=== PATIENT | female | born 1935 | race Caucasian/White ===

== ENCOUNTER 2018-04-25 12:17 | Emergency (ER) | payer OTHER ==
[~2018-04-25] VITALS: Ht 165.1 cm; Wt 56.7 kg
[~2018-04-25 12:17] MED LIST: ANTI-DIARRHEA2 MG PO; FLAGYL500 MG PO
[2018-04-25 13:04] LABS: URINE BILIRUBIN NEGATIVE (Negative); URINE BLOOD NEGATIVE (Negative); URINE CLARITY CLEAR; URINE COLOR YELLOW; URINE GLUCOSE-RANDOM* NEGATIVE (Negative); URINE KETONES NEGATIVE (Negative); URINE LEUKOCYTES-REFLEX NEGATIVE (Negative); URINE NITRITE-REFLEX NEGATIVE (Negative); URINE PROTEIN (DIPSTICK) NEGATIVE (Negative); URINE SPECIFIC GRAVITY 1.025 (1.005-1.035); URINE UROBILINOGEN 0.2 E.U./dl (0.2-1.0)
[2018-04-25 14:19] LABS: ABSOLUTE NEUTROPHILS 8.5 thou/uL (1.4-8.2); BASOPHILS 0.4 % (0.0-2.0); EOSINOPHILS 0.8 % (0.0-3.0); HEMATOCRIT 40.7 % (37.0-47.0); HEMOGLOBIN 13.9 gm/dL (12.0-15.0); LYMPHOCYTES 5.1 % (24.0-44.0); MCH 31.5 pg (26.0-34.0); MCV 92.7 fL (80.0-100.0); MONOCYTES 4.4 % (1.0-8.0); PLATELET COUNT 237 thou/uL (150-400); POLYS 89.3 % (36.0-66.0); RBC 4.39 mil/uL (4.20-5.00); RDW 14.4 % (10.5-14.5); WBC 9.5 thou/uL (4.0-11.0)
[2018-04-25 14:24] LABS: ANION GAP 10 mmol/L (7-16); BUN 23 mg/dL (7-18); CALCIUM 9.2 mg/dL (8.5-10.1); CHLORIDE 105 mmol/L (98-107); CO2 24 mmol/L (21-32); CREATININE 0.8 mg/dL (0.6-1.0); GLUCOSE 105 mg/dL (74-106); SODIUM 139 mmol/L (136-145)
[2018-04-25 14:26] LABS: POTASSIUM 4.5 mmol/L (3.5-5.1)
[2018-04-25 14:33] LABS: ALBUMIN 3.8 g/dL (3.4-5.0); LIPASE 225 U/L (73-393); SGOT 35 U/L (15-37); SGPT 29 U/L (30-65); TOTAL BILIRUBIN 0.5 mg/dL (<0.1-1.0); TOTAL PROTEIN 7.3 g/dL (6.4-8.2); TROPONIN-I <0.06 ng/mL (<0.06)
[2018-04-25] MEDS ORDERED: LOPERAMIDE 2 MG2 M1 PO (14:57)
[2018-04-25 15:22] VITALS: BP 128/71
--- NOTE | 2018-04-26 10:56 | EKG ---
[address] [address] ELECTROCARDIOGRAM REPORT Name: BABAR SHEN Room #: [facility]#: [id number] Admission: 04/25/18 Attend Phys: Discharge: 04/25/18 Date of : 31 Report #: [id number] THIS REPORT FOR: //name// [facility] ED Test Date: 2018-04-25 Test Time: 13:29:47 Pat Name: BABAR SHEN Department: Room: Gender: F Corn Cutter: NELSON : 1935 Requested By: Abbey Browne Order Number: [id number] MD: Aleksandr Hernandez Measurements Intervals [place] Rate: 75 P: 49 MI: 155 QRS: 8 QRSD: 89 T: 28 QT: 426 QTc: 476 Interpretive Statements Sinus rhythm Probable left atrial enlargement Compared to ECG 02/29/2012 08:05:26 T-wave abnormality no longer present Electronically Signed On 04-26-2018 10:56:38 SPINNER CONTINUOUS by Aleksandr Hernandez [email or web address] <ELECTRONICALLY SIGNED> By: Aleksandr Hernandez MD 04/26/18 1056 1329 [id number] MD RICH Gold
== END 2018-04-25 15:22 | disposition home or self-care (01) ==
LOC: ER 12:17
PROVIDERS: Physician Assistant
DX: R19.7 Diarrhea, unspecified (principal); R11.2 Nausea with vomiting, unspecified; R10.12 Left upper quadrant pain

== ENCOUNTER 2018-05-02 08:07 | Emergency (ER) | payer OTHER ==
[~2018-05-02] VITALS: Ht 165.1 cm; Wt 56.7 kg
[~2018-05-02 08:07] MED LIST changes: +LOPERAMIDE 2 MG2 M1 PO
[2018-05-02 08:11] VITALS: BP 150/79
[2018-05-02 08:28] LABS: URINE BILIRUBIN NEGATIVE (Negative); URINE BLOOD NEGATIVE (Negative); URINE CLARITY CLEAR; URINE COLOR YELLOW; URINE GLUCOSE-RANDOM* NEGATIVE (Negative); URINE KETONES NEGATIVE (Negative); URINE LEUKOCYTES-REFLEX NEGATIVE (Negative); URINE NITRITE-REFLEX NEGATIVE (Negative); URINE PROTEIN (DIPSTICK) NEGATIVE (Negative); URINE SPECIFIC GRAVITY <= 1.005 (1.005-1.035); URINE UROBILINOGEN 0.2 E.U./dl (0.2-1.0)
[2018-05-02 09:08] LABS: ABSOLUTE NEUTROPHILS 5.2 thou/uL (1.4-8.2); BASOPHILS 0.9 % (0.0-2.0); EOSINOPHILS 1.5 % (0.0-3.0); HEMATOCRIT 40.5 % (37.0-47.0); HEMOGLOBIN 13.7 gm/dL (12.0-15.0); LYMPHOCYTES 20.2 % (24.0-44.0); MCH 31.2 pg (26.0-34.0); MCHC 33.9 g/dL (28.0-37.0); MCV 92.2 fL (80.0-100.0); MONOCYTES 9.7 % (1.0-8.0); PLATELET COUNT 266 thou/uL (150-400); POLYS 67.7 % (36.0-66.0); RBC 4.39 mil/uL (4.20-5.00); RDW 13.8 % (10.5-14.5); WBC 7.6 thou/uL (4.0-11.0)
[2018-05-02 09:16] LABS: ANION GAP 6 mmol/L (7-16); BUN 21 mg/dL (7-18); CALCIUM 9.8 mg/dL (8.5-10.1); CHLORIDE 105 mmol/L (98-107); CO2 29 mmol/L (21-32); GLUCOSE 100 mg/dL (74-106); POTASSIUM 4.1 mmol/L (3.5-5.1); SODIUM 140 mmol/L (136-145)
[2018-05-02 09:25] LABS: ALBUMIN 3.9 g/dL (3.4-5.0); LIPASE 353 U/L (73-393); SGOT 33 U/L (15-37); SGPT 31 U/L (30-65); TOTAL BILIRUBIN 0.3 mg/dL (<0.1-1.0); TOTAL PROTEIN 7.3 g/dL (6.4-8.2); TROPONIN-I <0.06 ng/mL (<0.06)
[2018-05-02 10:39] VITALS: BP 162/81
[2018-05-02 11:36] VITALS: BP 140/59
--- NOTE | 2018-05-03 21:58 | EKG ---
[address] [address] ELECTROCARDIOGRAM REPORT Name: BABAR SHEN Room #: [facility]#: [id number] Admission: 05/02/18 Attend Phys: Discharge: 05/02/18 Date of : 31 Report #: [id number] THIS REPORT FOR: //name// [facility] ED Test Date: 2018-05-02 Test Time: 08:45:51 Pat Name: BABAR SHEN Department: Room: 170 Gender: F Fiscal Assistant: cecily : 1935 Requested By: Frankie Richardson Order Number: [id number] MD: Hawk Sanchez Measurements Intervals [place] Rate: 68 P: 54 IN: 156 QRS: 14 QRSD: 92 T: 36 QT: 401 QTc: 427 Interpretive Statements Sinus rhythm Abnormal R-wave progression, early transition Compared to ECG 04/25/2018 13:29:47 No significant changes Electronically Signed On 05-03-2018 21:58:31 FLEXOGRAPHIC PRESS OPERATOR by Hawk Sanchez [email or web address] <ELECTRONICALLY SIGNED> By: Hawk Sanchez MD 05/03/18 2158 4 4 Hawk Sanchez MD /SANDRA
== END 2018-05-02 11:37 | disposition home or self-care (01) ==
LOC: ER 08:07 → EROBS 10:59 → ER 11:37
PROVIDERS: Emergency Medicine
DX: K80.21 Calculus of gallbladder without cholecystitis with obstruction (principal); R42 Dizziness and giddiness

== ENCOUNTER 2018-05-04 06:41 | Inpatient (IN) | payer OTHER ==
[~2018-05-04] VITALS: Ht 165.1 cm; Wt 54.4 kg
[2018-05-04 06:41] VITALS: BP 155/80
[2018-05-04 08:09] LABS: BASOPHILS 0.8 % (0.0-2.0); EOSINOPHILS 1.6 % (0.0-3.0); HEMATOCRIT 42.4 % (37.0-47.0); HEMOGLOBIN 14.1 gm/dL (12.0-15.0); LYMPHOCYTES 22.1 % (24.0-44.0); MCH 30.8 pg (26.0-34.0); MCHC 33.2 g/dL (28.0-37.0); MCV 92.7 fL (80.0-100.0); MONOCYTES 11.2 % (1.0-8.0); PLATELET COUNT 313 thou/uL (150-400); POLYS 64.3 % (36.0-66.0); RBC 4.58 mil/uL (4.20-5.00); RDW 14.4 % (10.5-14.5); WBC 7.7 thou/uL (4.0-11.0)
[2018-05-04 08:21] LABS: CALCIUM 10.4 mg/dL (8.5-10.1); CREATININE 0.9 mg/dL (0.6-1.0); POTASSIUM 4.2 mmol/L (3.5-5.1)
[2018-05-04 08:36] VITALS: BP 154/86
[2018-05-04 09:19] VITALS: BP 152/80
[2018-05-04 14:46] VITALS: BP 155/78
[2018-05-04 17:20] VITALS: BP 155/86
[2018-05-04 19:33] VITALS: BP 149/91
--- NOTE | 2018-05-04 19:34 | NUR ---
ASSUMED CARE OF PT AT 09:16. ARRIVED FROM ED IN STABLE CONDITION. ADMISSION ASSESSMENT COMPLETED. A&O,X4. UP AD SRINATH. C/O ABD PAIN, PAIN MEDS GIVEN ORDERED. PT HAD BEEN EXPERIENCING DIARRHEA, NO LOOSE STOOLS NOTED SINCE AM TODAY. SKIN INTACT. ROOM AIR, CLEAR LUNGS. REGULAR HEART SOUNDS, NO EDEMA. ONE EPISODE OF NAUSEA NOTED, MEDS GIVEN, NAUSEA RESOLVED. MAINTAINING C.DIFF PRECAUTIONS. PT UP IN HALLWAYS WALKING AROUND THIS EVENING. WILL CONTINUE TO MONITOR.
--- NOTE | 2018-05-04 19:37 | NUR ---
DR. GIMENEZ CALLED AND REPORTED NEGATIVE C.DIFF RESULTS. ORDERS TO D/C FLAGYL AND VANCOMYOCIN. PRECAUTIONS REMOVED. POSSIBLE DISCHARGE TOMORROW. PT IN STABLE CONDITION.
--- NOTE | 2018-05-05 01:09 | NUR ---
PT IS UP AD SRINATH. WALKED ROUND THE HALLWAYS X 1. PT DENIES NAUSEA. DRINKING WATER. PT HAS AN IV TO RAC. IVF INFUSING. PT INSISTING ON IVF TO BE DISCONTINUED PLUS THE IV. AFTER MUCH CONVINCING, PT AGREED TO REMAIN WITH IV BUT FLUIDS HAD TO BE STOPPED. PT GIVEN A FULL PITCHER OF WATER.PT WAS C/O INABILITY TO SLEEP. PT ALSO REFUSED FOR IV SITE TO BE MOVED TO A DIFFERENT SITE.WILL CONTINUE WITH POC TILL EOS.
[2018-05-05 04:41] VITALS: BP 155/87
[2018-05-05] MEDS ORDERED: REMERON15 MG PO (07:43)
[2018-05-05 08:00] VITALS: BP 155/80
[2018-05-05 08:08] VITALS: BP 155/87
--- NOTE | 2018-05-05 09:07 | NUR ---
ASSUMED CARE OF PT AT 0700. ASSESSMENT COMPLETED. A&O,X4. DENIES CONCERNS, STATES NO ABD PAIN AND NO LOOSE STOOLS. PT ATE BREAKFAST, NO NAUSEA. NEW DISCHARGE ORDERS. IV REMOVED, NO BLEEDING. DISCHARGE INFORMATION DISCUSSED WITH PT AT BEDSIDE, NO QUESTIONS. SCRIPTS AND CARENOTES GIVEN. PT LEFT IN STABLE CONDITION VIA WHEELCHAIR AT 09:10.
== END 2018-05-05 09:12 | disposition home or self-care (01) | DRG 392 ==
LOC: ER 06:41 → EROBS 07:28 → 4E 07:28 → ENTRNSPT 05-05 09:02 → EDTRNSPTSTS 05-05 09:06 → 4E 05-05 09:12
PROVIDERS: Emergency Medicine; ADMIT Family Medicine
DX: A08.4 Viral intestinal infection, unspecified (principal); N17.9 Acute kidney failure, unspecified; R19.7 Diarrhea, unspecified; K80.20 Calculus of gallbladder without cholecystitis without obstruction; E86.0 Dehydration; G47.00 Insomnia, unspecified; F41.9 Anxiety disorder, unspecified
CPT/HCPCS: 10084

== ENCOUNTER 2018-06-06 13:38 | Emergency (ER) | payer OTHER ==
[~2018-06-06] VITALS: Ht 162.6 cm; Wt 54.4 kg
[~2018-06-06 13:38] MED LIST changes: +REMERON15 MG PO
[2018-06-06 14:20] LABS: ABSOLUTE NEUTROPHILS 9.5 thou/uL (1.4-8.2); BASOPHILS 0.2 % (0.0-2.0); EOSINOPHILS 0.8 % (0.0-3.0); HEMATOCRIT 39.1 % (37.0-47.0); HEMOGLOBIN 13.2 gm/dL (12.0-15.0); LYMPHOCYTES 5.5 % (24.0-44.0); MCH 30.7 pg (26.0-34.0); MCHC 33.7 g/dL (28.0-37.0); MONOCYTES 5.5 % (1.0-8.0); PLATELET COUNT 365 thou/uL (150-400); RDW 13.8 % (10.5-14.5); WBC 10.8 thou/uL (4.0-11.0)
[2018-06-06 14:33] LABS: ALBUMIN 3.6 g/dL (3.4-5.0); TOTAL BILIRUBIN 0.3 mg/dL (<0.1-1.0)
[2018-06-06 15:51] VITALS: BP 127/74
== END 2018-06-06 15:51 | disposition home or self-care (01) ==
LOC: ER 13:38
PROVIDERS: Physician Assistant
DX: J40 Bronchitis, not specified as acute or chronic (principal); Z88.1 Allergy status to other antibiotic agents

== ENCOUNTER 2018-09-22 07:37 | Emergency (ER) | payer OTHER ==
[~2018-09-22] VITALS: Ht 162.6 cm; Wt 54.4 kg
[2018-09-22] MEDS ORDERED: ZOLOFT50 MG PO (07:47)
[2018-09-22] MEDS ORDERED: ESZOPICLONE3 MG PO (07:47)
[2018-09-22] MEDS ORDERED: NORCO 5-325 TA1 EAC1 PO (09:06)
[2018-09-22 09:25] VITALS: BP 138/54
== END 2018-09-22 09:26 | disposition home or self-care (01) ==
LOC: ER 07:37
DX: S52.571A Other intraarticular fracture of lower end of right radius, initial encounter for closed fracture (principal); S00.83XA Contusion of other part of head, initial encounter; S80.212A Abrasion, left knee, initial encounter; S80.211A Abrasion, right knee, initial encounter; S00.31XA Abrasion of nose, initial encounter; M19.90 Unspecified osteoarthritis, unspecified site; Z88.1 Allergy status to other antibiotic agents; W01.0XXA Fall on same level from slipping, tripping and stumbling without subsequent striking against object, initial encounter; Y92.89 Other specified places as the place of occurrence of the external cause; Y93.89 Activity, other specified; Y99.8 Other external cause status

== ENCOUNTER → 2019-04-21 | Outpatient (CLI) | payer OTHER, MEDICARE ==
[~2019-04-21] MED LIST changes: +ESZOPICLONE3 MG PO; +NORCO 5-325 TA1 EAC1 PO; +ZOLOFT50 MG PO
== END ==
LOC: RAD 08:48
DX: R05 Cough (principal); R09.89 Other specified symptoms and signs involving the circulatory and respiratory systems

== ENCOUNTER → 2020-03-28 | Outpatient (CLI) | payer OTHER, MEDICARE | LOC: CAT 15:35 | PROVIDERS: ATTEND Family Medicine | DX: K80.80 Other cholelithiasis without obstruction (principal); R91.1 Solitary pulmonary nodule; D72.829 Elevated white blood cell count, unspecified; G89.29 Other chronic pain ==

== ENCOUNTER → 2020-04-13 | Outpatient (CLI) | payer OTHER, MEDICARE | LOC: CAT 10:08 | PROVIDERS: ATTEND Surgery | DX: K80.20 Calculus of gallbladder without cholecystitis without obstruction (principal); D72.829 Elevated white blood cell count, unspecified; G89.29 Other chronic pain; R91.1 Solitary pulmonary nodule ==

== ENCOUNTER → 2020-04-17 | Outpatient (CLI) | payer OTHER, MEDICARE | LOC: NUC 07:59 | PROVIDERS: ATTEND Surgery | DX: K80.20 Calculus of gallbladder without cholecystitis without obstruction (principal) ==

== ENCOUNTER → 2020-04-20 | Outpatient (CLI) | payer OTHER, MEDICARE ==
[~2020-04-20] MED LIST changes: +B COMPLEX1 EACH PO; +DIAZEPAM 10 MG10 M2 PO; +EYE HEALTH ADU1 EACH PO; +FISH OIL 1,0001 EAC9 PO; +LUTEIN6 MG PO; +ZOLOFT25 MG PO; -ZOLOFT50 MG PO
== END ==
LOC: LAB 07:36
PROVIDERS: ATTEND Radiology Diagnostic Radiology
DX: Z01.812 Encounter for preprocedural laboratory examination (principal); Z20.822 Contact with and (suspected) exposure to COVID-19

== ENCOUNTER → 2020-04-21 | Outpatient (CLI) | payer OTHER, MEDICARE ==
[~2020-04-21] VITALS: Ht 162.6 cm; Wt 53.5 kg
[2020-04-21 10:49] VITALS: BP 146/74
[2020-04-21 11:52] LABS: INR 1.1; PROTIME 11.1 Seconds (9.3-11.4)
== END ==
LOC: SPEC 10:09
PROVIDERS: Internal Medicine Hematology; ATTEND Radiology Diagnostic Radiology
DX: K80.10 Calculus of gallbladder with chronic cholecystitis without obstruction (principal); Z98.890 Other specified postprocedural states; Z82.49 Family history of ischemic heart disease and other diseases of the circulatory system

== ENCOUNTER 2020-04-23 08:44 | Emergency (ER) | payer OTHER, MEDICARE ==
[~2020-04-23] VITALS: Ht 157.5 cm; Wt 46.7 kg
[2020-04-23 10:03] VITALS: BP 141/85
== END 2020-04-23 10:30 | disposition home or self-care (01) ==
LOC: ER 08:44
DX: Z48.89 Encounter for other specified surgical aftercare (principal); Z79.899 Other long term (current) drug therapy; Z88.1 Allergy status to other antibiotic agents

== ENCOUNTER → 2020-05-11 | Outpatient (CLI) | payer OTHER, MEDICARE | LOC: LAB 13:58 | PROVIDERS: ATTEND Radiology Diagnostic Radiology | DX: Z01.812 Encounter for preprocedural laboratory examination (principal); Z20.822 Contact with and (suspected) exposure to COVID-19 ==

== ENCOUNTER → 2020-05-12 | Outpatient (CLI) | payer OTHER, MEDICARE | END | disposition home or self-care (01) | LOC: SPEC 12:59 | PROVIDERS: ATTEND Surgery | DX: Z48.03 Encounter for change or removal of drains (principal); K80.00 Calculus of gallbladder with acute cholecystitis without obstruction; Z98.890 Other specified postprocedural states; Z79.899 Other long term (current) drug therapy ==

== ENCOUNTER 2020-10-19 10:40 | Emergency (ER) | payer OTHER, MEDICARE ==
[~2020-10-19] VITALS: Ht 162.6 cm; Wt 54.4 kg
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
[2020-10-19 11:27] LABS: ABSOLUTE NEUTROPHILS 5.7 thou/uL (1.4-8.2); BASOPHILS 0.8 % (0.0-2.0); EOSINOPHILS 0.9 % (0.0-3.0); HEMATOCRIT 39.6 % (37.0-47.0); LYMPHOCYTES 23.7 % (24.0-44.0); MCH 30.5 pg (26.0-34.0); MCHC 32.9 g/dL (28.0-37.0); MCV 92.8 fL (80.0-100.0); MONOCYTES 10.5 % (1.0-8.0); PLATELET COUNT 268 thou/uL (150-400); POLYS 64.1 % (36.0-66.0); RBC 4.27 mil/uL (4.20-5.00); RDW 14.9 % (10.5-14.5); WBC 8.8 thou/uL (4.0-11.0)
[2020-10-19 11:37] LABS: CALCIUM 8.7 mg/dL (8.5-10.1); CREATININE 1.1 mg/dL (0.6-1.0); POTASSIUM 4.1 mmol/L (3.5-5.1)
[2020-10-19] MEDS ORDERED: APAP W/CODEINE1 TA2 PO (13:04)
[2020-10-19 13:11] VITALS: BP 172/79
--- NOTE | 2020-10-19 14:14 | EKG ---
[address] [address] ELECTROCARDIOGRAM REPORT Name: BABAR SHEN Room #: [facility]#: [id number] Admission: 10/19/20 Attend Phys: Discharge: 10/19/20 Date of : 31 Report #: [id number] [facility] ED Test Date: 2020-10-19 Test Time: 10:42:37 Pat Name: BABAR SHEN Department: Room: Gender: Radioisotope Technologist: CAITIE : 1935 Requested By: Thanh Hays Order Number: [id number] MD: Chin Villasenor Measurements Intervals [place] Rate: 71 P: 39 AL: 158 QRS: 7 QRSD: 92 T: 30 QT: 404 QTc: 439 Interpretive Statements Sinus arrhythmia Probable left atrial enlargement Compared to ECG 05/02/2018 08:45:51 Sinus rhythm no longer present Electronically Signed On 10-19-2020 14:14:37 CDT by Chin Villasenor [email or web address] <ELECTRONICALLY SIGNED> By: Chin Villasenor MD, [facility] 10/19/20 1414 1042 1042 Chin Villasenor MD, FACC /EPI
== END 2020-10-19 13:11 | disposition home or self-care (01) ==
LOC: ER 10:40
PROVIDERS: Emergency Medicine
DX: S40.811A Abrasion of right upper arm, initial encounter (principal); Z88.1 Allergy status to other antibiotic agents; Z79.899 Other long term (current) drug therapy; V89.2XXA Person injured in unspecified motor-vehicle accident, traffic, initial encounter; W22.19XA Striking against or struck by other automobile airbag, initial encounter; Y93.02 Activity, running; Y92.89 Other specified places as the place of occurrence of the external cause; Y99.8 Other external cause status